=== PATIENT | female | born 1965 | race Caucasian/White ===

== ENCOUNTER → 2019-08-17 | Outpatient (CLI) | payer BC ==
[~2019-08-17] VITALS: Ht 165.1 cm; Wt 63.6 kg
[~2019-08-17] MED LIST: LIDOCAINE 1% INJ 20 ML 20 ML VIAL INJ ONE; LIDOCAINE 1% INJ 20 ML 20 ML VIAL ONE
--- NOTE | 2019-08-17 17:55 | Diagnostic Imaging Report ---
INDICATION: Left breast calcifications. PROCEDURE: The patient presents for stereotactic biopsy. DESCRIPTION OF PROCEDURE: The patient was brought to the stereotactic suite, placed in a chair in the sitting upright position. The left breast was positioned in a CC fashion. Calcifications in the upper central left breast were stereotactically targeted. The superior left breast was then prepped and draped in the usual sterile fashion. A small amount of 1% lidocaine was utilized for local anesthesia. An 8 gauge vacuum-assisted needle was advanced and placed with its tip per stereotactic coordinates. A total of 4 core biopsies were obtained with the vacuum-assisted device. Specimen radiograph was obtained demonstrating numerous calcifications within samples labeled #1, 2 and 4. Marker clip was then deployed. Needle was withdrawn and hemostasis was obtained. Follow-up CC and ML 2D mammography was performed. Images demonstrate a marker clip in the upper central left breast. All images were viewed on a dedicated workstation. IMPRESSION: Stereotactic biopsy of left breast calcifications, as described. Pathology results are currently pending. Dictated by: Dictated on workstation # [id number]
== END ==
LOC: RAD 07:43
PROVIDERS: ATTEND Nurse Practitioner Women's Health
DX: R92.0 Mammographic microcalcification found on diagnostic imaging of breast (principal)
CPT/HCPCS: 19081; A4648